=== PATIENT | female | born 1950 | race Caucasian/White ===

== ENCOUNTER → 2017-12-28 14:40 | Outpatient (CLI) | payer MEDICARE, SELFPAY ==
[2017-12-28 15:28] LABS: Hematocrit 38.4 % (36-46)
[2017-12-28 15:49] LABS: BUN Creatinine Ratio 7.8 (6-22); Blood Urea Nitrogen 18 mg/dL (7-17); Calcium 10.7 mg/dL (8.4-10.2); Carbon Dioxide 30 mmol/L (22-32); Chloride 102 mmol/L (98-107); Estimated Glomerular Filt Rate 21.3 mL/min (>60); Glucose 97 mg/dL (80-110); HEMOLYSIS 23 (0-50); HEMOLYSIS < 15 (0-50); Iron 118 ug/dL (37-170); Potassium 4.2 mmol/L (3.4-5.1); Sodium 144 mmol/L (137-145)
[2017-12-28 16:00] LABS: Percent Iron Saturation 34 % (15-50); Total Iron Binding Capacity 344 ug/dL (265-497); Transferrin 283 mg/dL (206-381)
[2017-12-28 16:04] LABS: Protein (Total) Urine Random 12 mg/dL (0-12); Protein Creatinine Ratio Urine 0.11 GRAM/24H
[2017-12-28 16:24] LABS: Ferritin 42.1 ng/mL (11.1-264)
== END ==
PROVIDERS: PCP Family Medicine; Visit Provider Student in an Organized Health Care Education/Training Program
DX: N05.9 Unspecified nephritic syndrome with unspecified morphologic changes (principal); D50.0 Iron deficiency anemia secondary to blood loss (chronic); D64.9 Anemia, unspecified; R80.9 Proteinuria, unspecified
CPT/HCPCS: 36415; 80048; 82570; 82728; 83540; 83550; 84156; 85014; 85018

== ENCOUNTER → 2018-01-07 09:05 | Outpatient (CLI) | payer MEDICARE, SELFPAY ==
[2018-01-07 10:01] LABS: Add Manual Diff / Slide Review NO; Basophils Percent Auto 0.7 % (0-2); Eosinophils Percent Auto 4.4 % (2-4); Hematocrit 34.1 % (36-46); Hemoglobin 11.6 g/dL (12.0-16.0); Lymphocytes Percent Auto 16.7 % (25-40); Mean Corpuscular HGB Conc 34.2 % (30-36); Mean Corpuscular Hemoglobin 31.3 PG (26-34); Mean Corpuscular Volume 91.6 fL (80-100); Monocytes Percent Auto 10.7 % (3-14); Neutrophils Absolute Auto 4100 /uL (3000-5900); Neutrophils Percent Auto 67.5 % (50-75); Platelet Count 221 X10^3/uL (150-400); Red Blood Cell Count 3.72 X10^6/uL (4.0-5.2); Red Cell Distribution Width 14.3 % (11.6-14.8); White Blood Cell Count 6.1 X10^3/uL (4.5-11.0)
[2018-01-07 10:11] LABS: Appearance Urine UA CLEAR; Bilirubin Urine UA NEGATIVE (NEGATIVE); Color Urine UA YELLOW; Glucose Urine UA NEGATIVE (Normal); Ketones Urine UA NEGATIVE (NEGATIVE); Leukocyte Esterase Urine UA NEGATIVE (NEGATIVE); Nitrite Urine UA Negative (Negative); Occult Blood Urine UA NEGATIVE (Negative); Protein Urine UA NEGATIVE (Negative); Specific Gravity Urine UA 1.015 (1.000-1.035); Urobilinogen Urine UA 0.2 E.U./dL (0.2)
[2018-01-07 10:57] LABS: Alanine Aminotransferase 22 IU/L (9-52); Albumin 4.1 g/dL (3.5-5.0); Albumin Globulin Ratio 1.6 (1.0-2.8); Alkaline Phosphatase 63 U/L (38-126); Aspartate Aminotransferase 25 IU/L (14-36); BUN Creatinine Ratio 15.3 (6-22); Bilirubin Total 0.5 mg/dL (0.2-1.3); Blood Urea Nitrogen 23 mg/dL (7-17); Calcium 9.4 mg/dL (8.4-10.2); Carbon Dioxide 31 mmol/L (22-32); Chloride 105 mmol/L (98-107); Cholesterol 138 mg/dL (140-199); Estimated Glomerular Filt Rate 34.7 mL/min (>60); Globulin 2.6 g/dL (1.7-4.1); Glucose 90 mg/dL (80-110); HDL Cholesterol 59 mg/dL (40-60); HEMOLYSIS < 15 (0-50); LDL Cholesterol Calculated 69 mg/dL (<100); Potassium 4.5 mmol/L (3.4-5.1); Sodium 146 mmol/L (137-145); Total Protein 6.7 g/dL (6.3-8.2); Triglycerides 50 mg/dL (35-150)
[2018-01-07 11:21] LABS: Thyroid Stimulating Hormone 3.67 uIU/mL (0.47-4.68)
== END ==
PROVIDERS: PCP Family Medicine; Visit Provider Student in an Organized Health Care Education/Training Program
DX: E78.5 Hyperlipidemia, unspecified (principal); I10 Essential (primary) hypertension; N18.9 Chronic kidney disease, unspecified
CPT/HCPCS: 36415; 80053; 80061; 81003; 84443; 85025

== ENCOUNTER → 2018-01-12 11:18 | Outpatient (CLI) | payer MEDICARE, SELFPAY ==
[2018-01-13 15:45] LABS: Valproic Acid (Depakene) Total 45.2 mg/L (50.0-100.0)
== END ==
PROVIDERS: PCP Family Medicine; Visit Provider Specialist
DX: G43.119 Migraine with aura, intractable, without status migrainosus (principal)
CPT/HCPCS: 36415; 80164

== ENCOUNTER → 2018-01-29 11:08 | Outpatient (CLI) | payer MEDICARE, SELFPAY ==
[2018-01-29 12:30] LABS: B Type Natriuretic Peptide 46.8 (<100)
[2018-01-29 14:49] LABS: BUN Creatinine Ratio 19.3 (6-22); Blood Urea Nitrogen 29 mg/dL (7-17); Calcium 9.8 mg/dL (8.4-10.2); Carbon Dioxide 29 mmol/L (22-32); Chloride 102 mmol/L (98-107); Estimated Glomerular Filt Rate 34.7 mL/min (>60); Glucose 81 mg/dL (80-110); HEMOLYSIS < 15 (0-50); Sodium 143 mmol/L (137-145)
[2018-01-29 15:02] LABS: Potassium 5.4 mmol/L (3.4-5.1)
== END ==
PROVIDERS: PCP Family Medicine; Visit Provider Student in an Organized Health Care Education/Training Program
DX: N05.9 Unspecified nephritic syndrome with unspecified morphologic changes (principal); I50.32 Chronic diastolic (congestive) heart failure
CPT/HCPCS: 36415; 80048; 83880

== ENCOUNTER → 2018-06-21 09:24 | Outpatient (CLI) | payer MEDICARE, SELFPAY ==
[2018-06-21 10:04] LABS: HEMOLYSIS < 15 (0-50); Iron 64 ug/dL (37-170)
[2018-06-21 10:14] LABS: Percent Iron Saturation 17 % (15-50); Total Iron Binding Capacity 370 ug/dL (265-497); Transferrin 288 mg/dL (206-381)
[2018-06-21 10:48] LABS: BUN Creatinine Ratio 16.4 (6-22); Blood Urea Nitrogen 23 mg/dL (7-17); Carbon Dioxide 22 mmol/L (22-32); Chloride 106 mmol/L (98-107); Estimated Glomerular Filt Rate 37.6 mL/min (>60); Glucose 91 mg/dL (80-110); HEMOLYSIS < 15 (0-50); Potassium 4.4 mmol/L (3.4-5.1); Sodium 139 mmol/L (137-145)
[2018-06-21 11:14] LABS: Ferritin 18.4 ng/mL (11.1-264)
[2018-06-21 11:40] LABS: Creatinine Urine Random 126.3 mg/dL; Protein (Total) Urine Random 7 mg/dL (0-12); Protein Creatinine Ratio Urine 0.05 GRAM/24H
[2018-06-21 13:57] LABS: Alanine Aminotransferase 26 IU/L (9-52); Albumin 4.4 g/dL (3.5-5.0); Albumin Globulin Ratio 1.6 (1.0-2.8); Alkaline Phosphatase 106 U/L (38-126); Aspartate Aminotransferase 38 IU/L (14-36); BUN Creatinine Ratio 16.4 (6-22); Bilirubin Total 0.4 mg/dL (0.2-1.3); Blood Urea Nitrogen 23 mg/dL (7-17); Calcium 9.1 mg/dL (8.4-10.2); Carbon Dioxide 21 mmol/L (22-32); Chloride 107 mmol/L (98-107); Cholesterol 165 mg/dL (140-199); Estimated Glomerular Filt Rate 37.6 mL/min (>60); Globulin 2.8 g/dL (1.7-4.1); Glucose 89 mg/dL (80-110); HDL Cholesterol 54 mg/dL (40-60); HEMOLYSIS < 15 (0-50); LDL Cholesterol Calculated 87 mg/dL (<100); Potassium 4.4 mmol/L (3.4-5.1); Sodium 139 mmol/L (137-145); Total Protein 7.2 g/dL (6.3-8.2); Triglycerides 122 mg/dL (35-150)
[2018-06-21 14:28] LABS: Thyroid Stimulating Hormone 4.27 uIU/mL (0.47-4.68)
[2018-06-21 16:26] LABS: Add Manual Diff / Slide Review NO; Basophils Absolute Auto 100 /uL (0-100); Eosinophils Absolute Auto 300 /uL (0-450); Eosinophils Percent Auto 3.3 % (2-4); Hematocrit 42.3 % (36-46); Hemoglobin 13.7 g/dL (12.0-16.0); Lymphocytes Absolute Auto 1000 /uL (1100-4500); Lymphocytes Percent Auto 13.6 % (25-40); Mean Corpuscular HGB Conc 32.4 % (30-36); Mean Corpuscular Hemoglobin 30.2 PG (26-34); Monocytes Absolute Auto 900 /uL (0-900); Monocytes Percent Auto 12.2 % (3-14); Neutrophils Absolute Auto 5300 /uL (1500-7000); Neutrophils Percent Auto 69.9 % (50-75); Platelet Count 270 X10^3/uL (150-400); Red Blood Cell Count 4.55 X10^6/uL (4.0-5.2); White Blood Cell Count 7.6 X10^3/uL (4.5-11.0)
[2018-06-22 13:53] LABS: Parathyroid Hormone Int 215 pg/mL (14-64)
== END ==
PROVIDERS: PCP Family Medicine; Visit Provider Family Medicine
DX: I10 Essential (primary) hypertension (principal); N18.9 Chronic kidney disease, unspecified; Z51.81 Encounter for therapeutic drug level monitoring
CPT/HCPCS: 36415; 80048; 80053; 80061; 82570; 82728; 83540; 83550; 83970; 84156; 84443; 85025

== ENCOUNTER → 2018-08-11 14:03 | Outpatient (CLI) | payer MEDICARE, SELFPAY ==
--- NOTE | 2018-08-11 | DI.RAD.S_ITS ---
PROCEDURE: XR KUB INDICATIONS: Personal history of urinary calculi TECHNIQUE: One view of the abdomen acquired. COMPARISON: [facility], US, RENAL COMPLETE, 08/23/2014, 9:04. [facility], , L-SPINE 2-3 VIEWS, 12/10/2009, 10:49. FINDINGS: Surgical changes and devices: None. Bowel: Bowel gas pattern is nonobstructive. Moderate stool Soft tissues: Probable 1-3 mm multiple left renal calculi. No definite right-sided renal calculi although evaluation is suboptimal due to overlying stool. Presumed right-sided pelvic phleboliths. Bones: No suspicious bony lesions. Diffuse lumbar spondylosis and mild bilateral hip joint degeneration. IMPRESSION: Sub 5 mm left nephrolithiasis. If clinically necessary, this could be definitively assessed with CT KUB. Dictated by: Slim Roberson M.D. on 08/11/2018 at 14:49 Approved by: Slim Roberson M.D. on 08/11/2018 at 14:53
== END ==
PROVIDERS: PCP Family Medicine; Visit Provider Specialist
DX: N20.0 Calculus of kidney (principal); G40.109 Localization-related (focal) (partial) symptomatic epilepsy and epileptic syndromes with simple partial seizures, not intractable, without status epilepticus; Z87.442 Personal history of urinary calculi
CPT/HCPCS: 74018

== ENCOUNTER → 2018-10-21 12:14 | Outpatient (CLI) | payer MEDICARE, SELFPAY ==
[2018-10-21 12:51] LABS: Hematocrit 44.2 % (36-46); Hemoglobin 14.8 g/dL (12.0-16.0)
[2018-10-21 13:31] LABS: HEMOLYSIS < 15 (0-50); Iron 92 ug/dL (37-170)
[2018-10-21 13:33] LABS: BUN Creatinine Ratio 13.8 (6-22); Blood Urea Nitrogen 22 mg/dL (7-17); Calcium 9.8 mg/dL (8.4-10.2); Carbon Dioxide 22 mmol/L (22-32); Chloride 108 mmol/L (98-107); Estimated Glomerular Filt Rate 32.2 mL/min (>60); Glucose 97 mg/dL (80-110); HEMOLYSIS 17 (0-50); Sodium 141 mmol/L (137-145)
[2018-10-21 13:39] LABS: Potassium 5.4 mmol/L (3.4-5.1)
[2018-10-21 13:42] LABS: Percent Iron Saturation 27 % (15-50); Total Iron Binding Capacity 343 ug/dL (265-497); Transferrin 281 mg/dL (206-381)
[2018-10-21 14:04] LABS: Ferritin 32.7 ng/mL (11.1-264)
[2018-10-21 14:38] LABS: Creatinine Urine Random 316.8 mg/dL; Protein (Total) Urine Random 8 mg/dL (0-12); Protein Creatinine Ratio Urine 0.02 GRAM/24H
[2018-10-23 18:12] LABS: Parathyroid Hormone Int 112 pg/mL (14-64)
== END ==
PROVIDERS: PCP Family Medicine; Visit Provider Student in an Organized Health Care Education/Training Program
DX: N05.9 Unspecified nephritic syndrome with unspecified morphologic changes (principal); D50.0 Iron deficiency anemia secondary to blood loss (chronic); D64.9 Anemia, unspecified; N25.81 Secondary hyperparathyroidism of renal origin; R80.9 Proteinuria, unspecified
CPT/HCPCS: 36415; 80048; 82570; 82728; 83540; 83550; 83970; 84156; 85014; 85018

== ENCOUNTER → 2018-10-26 09:49 | Outpatient (CLI) | payer MEDICARE, SELFPAY ==
[2018-10-26 10:45] LABS: HEMOLYSIS < 15 (0-50); Potassium 4.3 mmol/L (3.4-5.1)
== END ==
PROVIDERS: PCP Family Medicine; Visit Provider Student in an Organized Health Care Education/Training Program
DX: E87.5 Hyperkalemia (principal)
CPT/HCPCS: 36415; 84132

== ENCOUNTER → 2019-01-11 15:18 | Outpatient (CLI) | payer MEDICARE, SELFPAY ==
[2019-01-11 16:05] LABS: Hematocrit 41.6 % (36-46); Hemoglobin 13.8 g/dL (12.0-16.0)
[2019-01-11 16:49] LABS: BUN Creatinine Ratio 17.5 (6-22); Blood Urea Nitrogen 28 mg/dL (7-17); Calcium 9.5 mg/dL (8.4-10.2); Carbon Dioxide 23 mmol/L (22-32); Chloride 110 mmol/L (98-107); Creatinine Urine Random 105.5 mg/dL; Estimated Glomerular Filt Rate 32.2 mL/min (>60); Glucose 89 mg/dL (80-110); HEMOLYSIS < 15 (0-50); Potassium 4.6 mmol/L (3.4-5.1); Protein (Total) Urine Random 9 mg/dL (0-12); Protein Creatinine Ratio Urine 0.08 GRAM/24H; Sodium 142 mmol/L (137-145)
[2019-01-14 08:13] LABS: Parathyroid Hormone Int 119 pg/mL (14-64)
== END ==
PROVIDERS: PCP Family Medicine; Visit Provider Student in an Organized Health Care Education/Training Program
DX: N05.9 Unspecified nephritic syndrome with unspecified morphologic changes (principal); D64.9 Anemia, unspecified; N25.81 Secondary hyperparathyroidism of renal origin; R80.9 Proteinuria, unspecified
CPT/HCPCS: 36415; 80048; 82570; 83970; 84156; 85014; 85018

== ENCOUNTER → 2019-04-08 11:02 | Outpatient (CLI) | payer MEDICARE, SELFPAY ==
[2019-04-08 11:44] LABS: Add Manual Diff / Slide Review NO; Basophils Absolute Auto 100 /uL (0-100); Basophils Percent Auto 1.1 % (0-2); Eosinophils Absolute Auto 300 /uL (0-450); Eosinophils Percent Auto 5.3 % (2-4); Hematocrit 41.9 % (36-46); Hemoglobin 14.2 g/dL (12.0-16.0); Lymphocytes Absolute Auto 1400 /uL (1100-4500); Lymphocytes Percent Auto 24.2 % (25-40); Mean Corpuscular HGB Conc 33.8 % (30-36); Mean Corpuscular Hemoglobin 31.4 PG (26-34); Mean Corpuscular Volume 92.8 fL (80-100); Monocytes Absolute Auto 600 /uL (0-900); Monocytes Percent Auto 10.9 % (3-14); Neutrophils Absolute Auto 3400 /uL (1500-7000); Neutrophils Percent Auto 58.5 % (50-75); Platelet Count 226 X10^3/uL (150-400); Red Blood Cell Count 4.52 X10^6/uL (4.0-5.2); Red Cell Distribution Width 13.4 % (11.6-14.8); White Blood Cell Count 5.9 X10^3/uL (4.5-11.0)
[2019-04-08 12:00] LABS: Bilirubin Urine UA NEGATIVE (NEGATIVE); Color Urine UA YELLOW; Glucose Urine UA NEGATIVE (Negative); Ketones Urine UA NEGATIVE (NEGATIVE); Leukocyte Esterase Urine UA 1+ (NEGATIVE); Nitrite Urine UA NEGATIVE (Negative); Occult Blood Urine UA NEGATIVE (Negative); Protein Urine UA TRACE (Negative); Urobilinogen Urine UA 0.2 E.U./dL (0.2); pH Urine UA 5.5 (4.5-8.0)
[2019-04-08 12:01] LABS: Bacteria Urine None Seen; RBC Urine None Seen (0-5/HPF)
[2019-04-08 12:07] LABS: Alanine Aminotransferase 12 IU/L (<35); Albumin 4.3 g/dL (3.5-5.0); Albumin Globulin Ratio 1.7 (1.0-2.8); Alkaline Phosphatase 96 U/L (38-126); Aspartate Aminotransferase 19 IU/L (14-36); Bilirubin Total 0.4 mg/dL (0.2-1.3); Blood Urea Nitrogen 27 mg/dL (7-17); Calcium 9.6 mg/dL (8.4-10.2); Carbon Dioxide 21 mmol/L (22-32); Chloride 108 mmol/L (98-107); Cholesterol 168 mg/dL (140-199); Estimated Glomerular Filt Rate 34.6 mL/min (>60); Globulin 2.5 g/dL (1.7-4.1); Glucose 93 mg/dL (80-110); HDL Cholesterol 47 mg/dL (40-60); HEMOLYSIS < 15 (0-50); LDL Cholesterol Calculated 105 mg/dL (<100); Potassium 3.9 mmol/L (3.4-5.1); Sodium 140 mmol/L (137-145); Total Protein 6.8 g/dL (6.3-8.2); Triglycerides 80 mg/dL (35-150)
[2019-04-08 12:09] LABS: WBC Urine 5-10/HPF (0-5/HPF)
[2019-04-08 12:10] LABS: Appearance Urine UA CLOUDY; Culture Indicated Urine Cult Not Indicated; Mucus Urine 2+ (Negative); Squamous Epithelial Cell Urine 10-30 /HPF (0-5/HPF)
[2019-04-08 12:37] LABS: Thyroid Stimulating Hormone 4.04 uIU/mL (0.47-4.68)
== END ==
PROVIDERS: PCP Family Medicine; Visit Provider Family Medicine
DX: I10 Essential (primary) hypertension (principal); E78.5 Hyperlipidemia, unspecified; N18.9 Chronic kidney disease, unspecified
CPT/HCPCS: 36415; 80053; 80061; 81003; 81015; 84443; 85025

== ENCOUNTER → 2019-05-13 14:24 | Outpatient (CLI) | payer MEDICARE, SELFPAY ==
[2019-05-13 15:21] LABS: Hematocrit 41.8 % (36-46); Hemoglobin 13.8 g/dL (12.0-16.0)
[2019-05-13 16:10] LABS: BUN Creatinine Ratio 17.9 (6-22); Blood Urea Nitrogen 25 mg/dL (7-17); Calcium 9.5 mg/dL (8.4-10.2); Carbon Dioxide 23 mmol/L (22-32); Chloride 105 mmol/L (98-107); Estimated Glomerular Filt Rate 37.5 mL/min (>60); Glucose 79 mg/dL (80-110); HEMOLYSIS < 15 (0-50); Potassium 4.5 mmol/L (3.4-5.1); Sodium 139 mmol/L (137-145)
[2019-05-13 17:17] LABS: Protein (Total) Urine Random 10 mg/dL (0-12); Protein Creatinine Ratio Urine 0.21 GRAM/24H
[2019-05-17 13:48] LABS: Parathyroid Hormone Int 55 pg/mL (14-64)
== END ==
PROVIDERS: PCP Family Medicine; Visit Provider Student in an Organized Health Care Education/Training Program
DX: D64.9 Anemia, unspecified (principal); N25.81 Secondary hyperparathyroidism of renal origin; R80.9 Proteinuria, unspecified
CPT/HCPCS: 36415; 80048; 82570; 83970; 84156; 85014; 85018

== ENCOUNTER → 2019-11-08 13:27 | Outpatient (CLI) | payer MEDICARE, SELFPAY ==
[2019-11-08 13:59] LABS: Hematocrit 42.1 % (36-46)
[2019-11-08 15:14] LABS: BUN Creatinine Ratio 16.1 (6-22); Blood Urea Nitrogen 24 mg/dL (7-17); Calcium 9.5 mg/dL (8.4-10.2); Carbon Dioxide 20 mmol/L (22-32); Chloride 111 mmol/L (98-107); Creatinine Urine Random 122.4 mg/dL; Estimated Glomerular Filt Rate 34.9 mL/min (>60); Glucose 96 mg/dL (80-110); HEMOLYSIS < 15 (0-50); Potassium 4.6 mmol/L (3.4-5.1); Protein (Total) Urine Random 8 mg/dL (0-12); Protein Creatinine Ratio Urine 0.06 GRAM/24H; Sodium 141 mmol/L (137-145)
[2019-11-09 09:08] LABS: Parathyroid Hormone Int 61 pg/mL (15-65)
== END ==
PROVIDERS: PCP Family Medicine; Referring Provider Student in an Organized Health Care Education/Training Program; Visit Provider Student in an Organized Health Care Education/Training Program
DX: R80.9 Proteinuria, unspecified (principal); N05.9 Unspecified nephritic syndrome with unspecified morphologic changes; D64.9 Anemia, unspecified
CPT/HCPCS: 36415; 80048; 82570; 83970; 84156; 85014; 85018

== ENCOUNTER → 2020-02-10 10:53 | Outpatient (CLI) | payer MEDICARE, SELFPAY ==
[2020-02-10 12:12] LABS: Appearance Urine UA CLEAR; Bilirubin Urine UA NEGATIVE (NEGATIVE); Color Urine UA YELLOW; Glucose Urine UA NEGATIVE (Negative); Ketones Urine UA NEGATIVE (NEGATIVE); Leukocyte Esterase Urine UA TRACE (NEGATIVE); Nitrite Urine UA NEGATIVE (Negative); Occult Blood Urine UA NEGATIVE (Negative); Protein Urine UA NEGATIVE (Negative); Urobilinogen Urine UA 0.2 E.U./dL (0.2)
[2020-02-10 12:14] LABS: Add Manual Diff / Slide Review NO; Basophils Absolute Auto 100 /uL (0-100); Eosinophils Absolute Auto 300 /uL (0-450); Eosinophils Percent Auto 5.4 % (2-4); Hematocrit 40.5 % (36-46); Hemoglobin 13.3 g/dL (12.0-16.0); Lymphocytes Absolute Auto 1300 /uL (1100-4500); Lymphocytes Percent Auto 21.7 % (25-40); Mean Corpuscular HGB Conc 32.9 % (30-36); Mean Corpuscular Hemoglobin 30.9 PG (26-34); Mean Corpuscular Volume 93.8 fL (80-100); Monocytes Absolute Auto 600 /uL (0-900); Monocytes Percent Auto 9.6 % (3-14); Neutrophils Absolute Auto 3600 /uL (1500-7000); Neutrophils Percent Auto 62.3 % (50-75); Platelet Count 193 X10^3/uL (150-400); Red Blood Cell Count 4.31 X10^6/uL (4.0-5.2); Red Cell Distribution Width 13.8 % (11.6-14.8); White Blood Cell Count 5.8 X10^3/uL (4.5-11.0)
[2020-02-10 12:24] LABS: pH Urine UA 6.5 (4.5-8.0)
[2020-02-10 12:25] LABS: RBC Urine None Seen (0-5/HPF)
[2020-02-10 12:26] LABS: Alanine Aminotransferase 13 IU/L (<35); Albumin 4.3 g/dL (3.5-5.0); Albumin Globulin Ratio 1.6 (1.0-2.8); Alkaline Phosphatase 79 U/L (38-126); Aspartate Aminotransferase 23 IU/L (14-36); BUN Creatinine Ratio 15.5 (6-22); Bilirubin Total 0.6 mg/dL (0.2-1.3); Blood Urea Nitrogen 23 mg/dL (7-17); Calcium 9.2 mg/dL (8.4-10.2); Carbon Dioxide 23 mmol/L (22-32); Chloride 110 mmol/L (98-107); Cholesterol 139 mg/dL (140-199); Estimated Glomerular Filt Rate 35.1 mL/min (>60); Globulin 2.7 g/dL (1.7-4.1); Glucose 89 mg/dL (80-110); HDL Cholesterol 50 mg/dL (40-60); HEMOLYSIS < 15 (0-50); LDL Cholesterol Calculated 72 mg/dL (<100); Potassium 4.1 mmol/L (3.4-5.1); Sodium 140 mmol/L (137-145); Triglycerides 84 mg/dL (35-150)
[2020-02-10 12:30] LABS: Amorphous Sediment Urine 1+; Bacteria Urine Moderate (10-30); Culture Indicated Urine Specimen Cultured; Mucus Urine 1+ (Negative); Squamous Epithelial Cell Urine 1-5 /HPF (0-5/HPF); WBC Urine 10-30/HPF (0-5/HPF)
[2020-02-10 13:44] LABS: Thyroid Stimulating Hormone 2.08 uIU/mL (0.47-4.68)
== END ==
PROVIDERS: PCP Family Medicine; Referring Provider Family Medicine; Visit Provider Family Medicine
DX: I12.9 Hypertensive chronic kidney disease with stage 1 through stage 4 chronic kidney disease, or unspecified chronic kidney disease (principal); N18.9 Chronic kidney disease, unspecified; G43.909 Migraine, unspecified, not intractable, without status migrainosus; E78.5 Hyperlipidemia, unspecified; R11.2 Nausea with vomiting, unspecified; F32.9 Major depressive disorder, single episode, unspecified
CPT/HCPCS: 36415; 80053; 80061; 81003; 81015; 84443; 85025; 87077; 87086; 87186

== ENCOUNTER → 2020-02-10 11:06 | Outpatient (CLI) | payer MEDICARE, SELFPAY ==
--- NOTE | 2020-02-10 | DI.RAD.S_ITS ---
PROCEDURE: XR ABDOMEN 1V INDICATIONS: Localization-related (focal) (partial) symptomatic epileps TECHNIQUE: One view of the abdomen acquired. COMPARISON: [facility], CR, XR KUB, 08/11/2018, 14:10. FINDINGS: Surgical changes and devices: None. Bowel: Bowel gas pattern is normal. Soft tissues: No suspicious abdominal calcifications. Visualized solid organ contours appear normal in size. Bones: No suspicious bony lesions. IMPRESSION: No definite radiopaque renal, ureteral or bladder calculi. Dictated by: Porfirio CASAREZ Interpreted: Dennis Andino MD on 02/10/2020 at 11:57 Approved by: Dennis Andino M.D. on 02/10/2020 at 13:08
== END ==
PROVIDERS: PCP Family Medicine; Referring Provider Specialist; Visit Provider Specialist
DX: G40.109 Localization-related (focal) (partial) symptomatic epilepsy and epileptic syndromes with simple partial seizures, not intractable, without status epilepticus (principal); I12.9 Hypertensive chronic kidney disease with stage 1 through stage 4 chronic kidney disease, or unspecified chronic kidney disease; N18.9 Chronic kidney disease, unspecified; G43.909 Migraine, unspecified, not intractable, without status migrainosus; E78.5 Hyperlipidemia, unspecified; R11.2 Nausea with vomiting, unspecified; Z87.442 Personal history of urinary calculi
CPT/HCPCS: 36415; 74018; 80053; 80061; 81003; 81015; 84443; 85025; 87077; 87086; 87186

== ENCOUNTER → 2020-03-14 12:54 | Outpatient (CLI) | payer MEDICARE, SELFPAY ==
[2020-03-14 13:24] LABS: Hematocrit 41.3 % (36-46); Hemoglobin 13.4 g/dL (12.0-16.0)
[2020-03-14 13:33] LABS: BUN Creatinine Ratio 23.7 (6-22); Blood Urea Nitrogen 32 mg/dL (7-17); Calcium 9.4 mg/dL (8.4-10.2); Carbon Dioxide 27 mmol/L (22-32); Chloride 108 mmol/L (98-107); Glucose 98 mg/dL (80-110); HEMOLYSIS < 15 (0-50); Potassium 4.3 mmol/L (3.4-5.1); Sodium 139 mmol/L (137-145)
[2020-03-14 15:50] LABS: Creatinine Urine Random 80.5 mg/dL; Protein (Total) Urine Random 7 mg/dL (0-12); Protein Creatinine Ratio Urine 0.08 GRAM/24H
[2020-03-15 07:09] LABS: Parathyroid Hormone Int 52 pg/mL (15-65)
== END ==
PROVIDERS: PCP Family Medicine; Referring Provider Student in an Organized Health Care Education/Training Program; Visit Provider Student in an Organized Health Care Education/Training Program
DX: R80.9 Proteinuria, unspecified (principal); N05.9 Unspecified nephritic syndrome with unspecified morphologic changes; D84.9 Immunodeficiency, unspecified; N25.81 Secondary hyperparathyroidism of renal origin
CPT/HCPCS: 36415; 80048; 82570; 83970; 84156; 85014; 85018

== ENCOUNTER → 2020-06-28 14:32 | Outpatient (CLI) | payer MEDICARE, SELFPAY ==
[2020-06-28] MEDS: COVID-19 VACC #1, MRNA(MOD) 100 MCG/0.5 ML VIAL IM (14:43)
== END ==
PROVIDERS: PCP Family Medicine; Visit Provider Internal Medicine
DX: Z23 Encounter for immunization (principal)
CPT/HCPCS: 0011A; 91301

== ENCOUNTER → 2020-07-26 14:29 | Outpatient (CLI) | payer MEDICARE, SELFPAY ==
[2020-07-26] MEDS: COVID-19 VACC #2, MRNA(MOD) 100 MCG/0.5 ML VIAL IM (14:35)
== END ==
PROVIDERS: PCP Family Medicine; Visit Provider Internal Medicine
DX: Z23 Encounter for immunization (principal)
CPT/HCPCS: 0012A; 91301

== ENCOUNTER → 2020-07-31 14:34 | Outpatient (CLI) | payer MEDICARE, SELFPAY ==
[2020-07-31 15:21] LABS: Hematocrit 40.9 % (36-46); Hemoglobin 13.5 g/dL (12.0-16.0)
[2020-07-31 15:34] LABS: BUN Creatinine Ratio 20.4 (6-22); Blood Urea Nitrogen 28 mg/dL (7-17); Calcium 9.4 mg/dL (8.4-10.2); Carbon Dioxide 21 mmol/L (22-32); Chloride 111 mmol/L (98-107); Estimated Glomerular Filt Rate 38.3 mL/min (>60); Glucose 98 mg/dL (80-110); HEMOLYSIS < 15 (0-50); Potassium 4.4 mmol/L (3.4-5.1); Sodium 141 mmol/L (137-145)
[2020-07-31 15:36] LABS: Creatinine Urine Random 154.7 mg/dL; Protein (Total) Urine Random 7 mg/dL (0-12); Protein Creatinine Ratio Urine 0.04 GRAM/24H
[2020-08-01 05:43] LABS: Parathyroid Hormone Int 123 pg/mL (15-65)
== END ==
PROVIDERS: PCP Family Medicine; Referring Provider Student in an Organized Health Care Education/Training Program; Visit Provider Student in an Organized Health Care Education/Training Program
DX: N05.9 Unspecified nephritic syndrome with unspecified morphologic changes (principal); D64.9 Anemia, unspecified; N25.81 Secondary hyperparathyroidism of renal origin; R80.9 Proteinuria, unspecified
CPT/HCPCS: 36415; 80048; 82570; 83970; 84156; 85014; 85018

== ENCOUNTER → 2020-11-06 13:26 | Outpatient (CLI) | payer MEDICARE, SELFPAY ==
[2020-11-06 14:05] LABS: Carbon Dioxide 19 mmol/L (22-32)
== END ==
PROVIDERS: PCP Family Medicine; Referring Provider Specialist; Visit Provider Specialist
DX: G40.109 Localization-related (focal) (partial) symptomatic epilepsy and epileptic syndromes with simple partial seizures, not intractable, without status epilepticus (principal)
CPT/HCPCS: 36415; 82374

== ENCOUNTER → 2021-01-24 12:42 | Outpatient (CLI) | payer MEDICARE, SELFPAY ==
[2021-01-24 13:11] LABS: Hematocrit 45.7 % (36-46)
[2021-01-24 13:42] LABS: Alanine Aminotransferase 12 IU/L (<35); Albumin 4.6 g/dL (3.5-5.0); Albumin Globulin Ratio 1.8 (1.0-2.8); Alkaline Phosphatase 91 U/L (38-126); Aspartate Aminotransferase 22 IU/L (14-36); BUN Creatinine Ratio 16.2 (6-22); Bilirubin Total 0.6 mg/dL (0.2-1.3); Blood Urea Nitrogen 19 mg/dL (7-17); Calcium 9.9 mg/dL (8.4-10.2); Carbon Dioxide 21 mmol/L (22-32); Chloride 108 mmol/L (98-107); Estimated Glomerular Filt Rate 45.9 mL/min (>60); Globulin 2.5 g/dL (1.7-4.1); Glucose 100 mg/dL (80-110); HEMOLYSIS 21 (0-50); Potassium 4.7 mmol/L (3.4-5.1); Sodium 141 mmol/L (137-145); Total Protein 7.1 g/dL (6.3-8.2)
[2021-01-24 14:12] LABS: Thyroid Stimulating Hormone 2.05 uIU/mL (0.47-4.68)
[2021-01-24 15:42] LABS: Creatinine Urine Random 143.7 mg/dL
[2021-01-24 15:43] LABS: Protein (Total) Urine Random < 5 mg/dL (0-12); Protein Creatinine Ratio Urine 0.03 GRAM/24H
[2021-01-29 10:46] LABS: Parathyroid Hormone Int 64 pg/mL (15-65)
== END ==
PROVIDERS: Student in an Organized Health Care Education/Training Program; PCP Family Medicine; Referring Provider Family Medicine; Visit Provider Family Medicine
DX: F32.9 Major depressive disorder, single episode, unspecified (principal); I10 Essential (primary) hypertension; N18.9 Chronic kidney disease, unspecified
CPT/HCPCS: 36415; 80053; 82570; 83970; 84156; 84443; 85014; 85018

== ENCOUNTER 2021-03-14 23:32 | Emergency (ER) | payer MEDICARE, SELFPAY ==
[2021-03-14 23:39] VITALS: BP 135/96; PULSE 66; RESP 18; TEMP 36.6; O2SAT 99; BMI 39.1
--- NOTE | 2021-03-14 23:42 | DI.CT.S_ITS ---
PROCEDURE: CT CERVICAL SPINE WO CON INDICATIONS: fall with disstracting injuries TECHNIQUE: Noncontrast 3 mm thick sections acquired from the skull base to the T4 level. Sagittal and coronal reformats were then constructed. For radiation dose reduction, the following was used: automated exposure control, adjustment of mA and/or kV according to patient size. COMPARISON: None. FINDINGS: Image quality: Degraded by motion artifact. Bones: No fractures or dislocations. Visualized superior ribs are intact. Soft tissues: Prevertebral soft tissues are normal in thickness. No paravertebral hematomas. No apical pneumothoraces. IMPRESSION: No fracture. Dictated by: Dennis Andino M.D. on 03/15/2021 at 0:50 Approved by: Dennis Andino M.D. on 03/15/2021 at 0:51
--- NOTE | 2021-03-14 23:42 | DI.RAD.S_ITS ---
PROCEDURE: XR KNEE LT 3V INDICATIONS: fall with left knee pain TECHNIQUE: 3 views of the knee were acquired. COMPARISON: None. FINDINGS: Bones: No fractures or dislocations. No suspicious bony lesions. Soft tissues: Moderate knee joint effusion. No suspicious soft tissue calcifications. IMPRESSION: 1. Knee joint effusion. 2. No acute fracture. No osseous lesion. If symptoms and/or clinical suspicion for pathology persist, further assessment with repeat, or advanced imaging (e.g., CT, MRI, or bone scan) may be helpful for further assessment. Dictated by: Dennis Andino M.D. on 03/15/2021 at 0:22 Approved by: Dennis Andino M.D. on 03/15/2021 at 0:23
--- NOTE | 2021-03-14 23:42 | DI.RAD.S_ITS ---
PROCEDURE: XR HIP W PEL IF DONE LT 2V INDICATIONS: fall with left hip pain TECHNIQUE: AP pelvis with lateral view(s) of the left hip(s). COMPARISON: None. FINDINGS: Bones: No fractures or dislocations. Pelvic ring appears intact. No suspicious bony lesions. Periarticular osteophyte formation at the bilateral hip joints. Soft tissues: The visualized bowel gas pattern is normal. No suspicious soft tissue calcifications. IMPRESSION: No acute fracture. No osseous lesion. If symptoms and/or clinical suspicion for pathology persist, further assessment with repeat, or advanced imaging (e.g., CT, MRI, or bone scan) may be helpful for further assessment. Dictated by: Dennis Andino M.D. on 03/15/2021 at 0:21 Approved by: Dennis Andino M.D. on 03/15/2021 at 0:22
--- NOTE | 2021-03-14 23:42 | DI.CT.S_ITS ---
PROCEDURE: CT HEAD/BRAIN WO CON INDICATIONS: fall with head injury TECHNIQUE: Noncontrast 4.5 mm thick angled axial sections acquired from the foramen magnum to the vertex, with coronal and sagittal reformats. For radiation dose reduction, the following was used: automated exposure control, adjustment of mA and/or kV according to patient size. COMPARISON: None. FINDINGS: Image quality: Excellent. CSF spaces: Basal cisterns are patent. No extra-axial fluid collections. The ventricles are symmetric in size and shape. Brain: No intracranial bleeds or masses. There is cerebral volume loss for age, with resultant ventricular and sulcal prominence. There are periventricular and deep white matter chronic small vessel ischemic changes. There is intracranial internal carotid artery atherosclerosis. Skull and face: Calvarium and visualized facial bones appear intact, without suspicious lesions. Sinuses: Visualized sinuses and mastoids are clear. IMPRESSION: No acute intracranial abnormality. Dictated by: Dennis Andino M.D. on 03/15/2021 at 0:49 Approved by: Dennis Andino M.D. on 03/15/2021 at 0:49
--- NOTE | 2021-03-14 23:42 | DI.RAD.S_ITS ---
PROCEDURE: XR ANKLE LT MIN 3V INDICATIONS: fall with ankle pain TECHNIQUE: 3 views of the ankle were acquired. COMPARISON: None. FINDINGS: Bones: No fractures or dislocations. Ankle mortise is normally aligned. No suspicious bony lesions. Soft tissues: No tibiotalar joint effusion. Achilles tendon appears normal. IMPRESSION: No acute fracture. No osseous lesion. If symptoms and/or clinical suspicion for pathology persist, further assessment with repeat, or advanced imaging (e.g., CT, MRI, or bone scan) may be helpful for further assessment. Dictated by: Dennis Andino M.D. on 03/15/2021 at 0:23 Approved by: Dennis Andino M.D. on 03/15/2021 at 0:23
--- NOTE | 2021-03-14 23:44 | ED.FALL ---
HPI - Fall General Chief Complaint: Fall Stated Complaint: GLF Time Seen by Provider: 03/14/21 23:36 Source: patient and EMS Mode of arrival: EMS History of Present Illness HPI Narrative: 71-year-old female former smoker with history of hypertension and hyperlipidemia presents with a chief complaint of a ground level fall resulting in injuries to her left knee and ankle. She states that she was in her normal state of health and fell because of a clot see moment. She had misplaced her keys and borrowed some from a neighbor and was racing across the sidewalk when she tripped and fell onto her left, hip, knee and ankle. She had significant pain and ambulating and upon standing states that her left leg gave out on her. She was unaware that she had struck her head until EMS arrived and saw an abrasion on her forehead. She does not take any anticoagulation, denies any loss of consciousness, denies any nausea, vomiting or ongoing neurologic symptoms such as numbness, tingling or weakness. She has pain in her left hip, knee and ankle. Her tetanus will need to be updated. She is activated as a modified trauma given her age and suspected injury. Again, she denies any prodromal symptoms such as chest pain or shortness of breath leading to her fall. Related Data Home Medications Medication Instructions Recorded Confirmed vit C 250 mg-vit E 90 mg-zinc 40 1 tab PO BID 04/12/19 10/31/20 mg-copper 1 tg-byorog-ztsiya capsule (PreserVision AREDS-2) propranolol 40 mg tablet 40 mg PO BID tab 01/06/20 10/31/20 isosorbide mononitrate 30 mg mg PO 10/31/20 10/31/20 tablet,extended release 24 hr topiramate 50 mg tablet See Rx Instructions PO BID PRN tab 10/31/20 10/31/20 Previous Rx's Medication Instructions Recorded adjuvant AS01B (PF)vial 1 of 2 0.5 ml IM ONCE #0.5 ml 03/31/18 (Shingrix Adjuvant Component-PF) pneumoc 13-anusha conj-dip cr(PF) 0.5 0.5 ml IM ONCE #0.5 ml 03/31/18 mL IM syringe divalproex 250 mg tablet,delayed 500 mg PO BID #180 tab 10/13/18 release lamotrigine 150 mg tablet 150 mg PO BID #180 tab 10/13/18 atorvastatin 20 mg tablet (Lipitor) 20 mg PO HS #90 tab 01/03/21 ondansetron 4 mg disintegrating 4 mg PO TID-QID PRN #10 tab 03/15/21 tablet oxycodone 5 mg tablet 5 mg PO Q4-6H PRN #30 tab 03/15/21 Allergies Allergy/AdvReac Type Severity Reaction Status Date / Time meperidine [MEPERIDINE] Allergy Unknown Verified 03/14/21 23:39 Penicillins [PENICILLINS] Allergy Unknown Verified 03/14/21 23:39 Review of Systems Review of Systems Narrative: GENERAL: Denies chills, fatigue, malaise, fever, sweats. HEENT: Denies sinus pain, ear pain, sore throat, difficulty swallowing, dizziness. RESPIRATORY: Denies dyspnea, cough, wheezing, hemoptysis, sputum. CARDIOVASCULAR: Denies chest pain, palpitations, orthopnea, edema, GASTROINTESTINAL: Denies nausea, vomiting, abdominal pain, diarrhea, constipation, melena. : Denies dysuria, frequency, incontinence, hematuria, urinary retention. MUSCULOSKELETAL: See HPI SKIN: Denies rash, skin lesions, or other NEUROLOGIC: Denies weakness, headache, numbness, change in speech, confusion, seizures, incoordination. PSYCHIATRIC: No concerning psychosocial issues. 12 point review of systems is negative except for those stated above Patient History Medical History Anemia CKD (chronic kidney disease) stage 3, GFR 30-59 ml/min Depression Epilepsy History of nephrolithiasis Hypertension Left hand fracture (~2012) Proteinuria Renal osteodystrophy Right hand fracture (~2011) Seizures Surgical History Status post arthroscopy Family History Brother Age: 68 Migraines Father Diabetes mellitus Grandfather TB (tuberculosis) Grandmother Lung cancer Mother Lung cancer Grandfather NM (myocardial infarction) Grandmother NM (myocardial infarction) Sister Seizure disorder Hypertension Depression History of surgery Social History Smoking Status: Former smoker Tobacco: How many years used: 20 alcohol intake: former (socially ) substance use type: does not use Smoking Status: Former smoker alcohol intake frequency: 0-2 drinks per day Substance Use Type: does not use Exam Narrative Exam Narrative: GENERAL: [71 year old patient appears stated age. Well-developed patient, in mild distress. GCS 15 HEAD: Superficial abrasion on right forehead with minimal swelling, no evidence of depressed skull fracture EYES: Pupils equal round and reactive. No hyphema. Extraocular motions intact. No scleral icterus. No injection or drainage. ENT: Nose without bleeding, purulent drainage. Throat without erythema, tonsillar hypertrophy or exudate. Airway patent. NECK: Trachea midline. Non tender, no step-offs or crepitance CARDIOVASCULAR: Regular rate and rhythm without murmurs, gallops, or rubs. RESPIRATORY: Clear to auscultation. Breath sounds equal bilaterally. No wheezes, rales, or rhonchi. GASTROINTESTINAL: Abdomen soft, non-tender, nondistended. EXTREMITIES: Full but painful range of motion of the left hip, left knee and left ankle, no obvious deformity of knee, perhaps a small effusion, no erythema. No obvious ligamentous instability. Left ankle with minimal lateral swelling, no obvious deformity. Perhaps shortening and external rotation at the left hip. BACK: Nontender without deformity or crepitance. No flank tenderness. NEURO: AOx3. SKIN: No rash or erythema of visible areas Initial Vital Signs Initial Vital Signs: Vital Signs Temperature 98 F 03/14/21 23:39 Pulse Rate 66 03/14/21 23:39 Respiratory Rate 18 03/14/21 23:39 Blood Pressure 135/96 H 03/14/21 23:39 Pulse Oximetry 99 03/14/21 23:39 Course Orders Ordered: Discontinued Medications Acetaminophen (Acetaminophen 325 Mg Tablet) 975 mg PO NOW ONE Stop: 03/15/21 00:38 Last Admin: 03/15/21 00:41 Dose: 975 mg Documented by: GAEL Acetaminophen (Acetaminophen 325 Mg Tablet) 325 mg PO Q6HR PRN PRN Reason: Fever/Mild Pain (1-3) Bacitracin (Bacitracin Oint 0.9 Gm Pckt) 1 applic TOP NOW ONE Stop: 03/15/21 00:38 Last Admin: 03/15/21 00:41 Dose: 1 applic Documented by: GAEL Diphtheria/Tetanus/Acell Pertussis (Tet,Diph,Pertuss(Acell),Vac/Pf 0.5 Ml Syringe) 0.5 ml IM .ONCE ONE Stop: 03/14/21 23:43 Last Admin: 03/14/21 23:49 Dose: 0.5 ml Documented by: GAEL Oxycodone HCl (Oxycodone Ir 5 Mg Tablet) 5 mg PO NOW ONE Stop: 03/15/21 02:45 Last Admin: 03/15/21 02:58 Dose: 5 mg Documented by: KAYLEEN Oxycodone/Acetaminophen (Oxycodone/Acetaminophen 5/325 Tablet) 1 tab PO NOW ONE Stop: 03/15/21 02:43 Last Admin: 03/15/21 02:59 Dose: Not Given Documented by: KAYLEEN Consultations Consultation #1: discussed with Dr. Thompson (senior talent acquisition specialist Ortho), no surgical indication. Recommends non-weight bearing, pain control, knee immobilizer. Follow up after further review of CT there is subtle suggestion of possible medial plateau involvement, ortho recontacted and requests radiology over-read Consultation #2: images pushed to [facility] and case discussed with Dr. Jasmin Gasca who has added an addendum noting medial cortex involvement call back to Dr. Thompson suggesting this could very well be surgical at this point and requests [facility] [place] Consultation #3: call to [facility]. Currently in rounds, will review images and call back at 0700. Patient and family aware. Dr Garrido has called back after reviewing case and images. He agrees that patient is nonsurgical in suggest knee immobilizer, pain control, nonweightbearing and crutches with local follow-up. Vital Signs Vital signs: Vital Signs - 8 hr 03/14/21 23:39 03/15/21 00:36 Temperature 98 F Pulse Rate 66 65 Respiratory Rate 18 18 Blood Pressure 135/96 H 168/73 H Pulse Oximetry 99 98 MDM - Fall Imaging Data CT scan - head: Radiologist's Impression: Launch?[address] [address] [address] Scan Report Signed Patient: Clara Paris MR#: [id number] : 1950 Acct:[id number] Age/Sex: 71 / F Date of Service: 03/14/21 Loc: ED Accession Number: [id number] ?? Procedure: CT head/brain wo con Ordering Provider: Oscar Benjamin D.O. PROCEDURE:? CT HEAD/BRAIN WO CON ? INDICATIONS:? fall with head injury ? TECHNIQUE:? Noncontrast 4.5 mm thick angled axial sections acquired from the foramen magnum to the vertex, with coronal and sagittal reformats.? For radiation dose reduction, the following was used:? automated exposure control, adjustment of mA and/or kV according to patient size.? ? COMPARISON:? None. ? FINDINGS:? Image quality:? Excellent.? ? CSF spaces:? Basal cisterns are patent.? No extra-axial fluid collections.? The ventricles are symmetric in size and shape.? ? Brain:? No intracranial bleeds or masses.? There is cerebral volume loss for age, with resultant ventricular and sulcal prominence.? There are periventricular and deep white matter chronic small vessel ischemic changes.? There is intracranial internal carotid artery atherosclerosis.? ? Skull and face:? Calvarium and visualized facial bones appear intact, without suspicious lesions.? ? Sinuses:? Visualized sinuses and mastoids are clear.? ? IMPRESSION:? No acute intracranial abnormality. ? ? Dictated by: Dennis Andino M.D. on 03/15/2021 at 0:49 ? ? Approved by: Dennis Andino M.D. on 03/15/2021 at 0:49 ? CT - cervical spine: Radiologist's Impression: Close Pelvis CT (Signed) Dennis Andino - 03/15/21 Knee X-Ray (Signed) Dennis Andino - 03/14/21 Hip X-Ray (Signed) Dennis Andino - 03/14/[address] (Signed) Dennis Andino - 03/14/[address] (Signed) Dennis Andino - 03/14/21 Ankle X-Ray (Signed) Dennis Andino - 03/14/21 Abdomen X-Ray (Signed) Dennis Andino - 02/10/20 KUB X-Ray (Signed) Slim Roberson - 08/11/18 Launch?[address] [address] [address] Scan Report Signed Patient: Clara Paris MR#: [id number] : 1950 Acct:[id number] Age/Sex: 71 / F Date of Service: 03/14/21 Loc: ED Accession Number: [id number] ?? Procedure: CT cervical spine wo con Ordering Provider: Oscar Benjamin D.O. PROCEDURE:? CT CERVICAL SPINE WO CON ? INDICATIONS:? fall with disstracting injuries ? TECHNIQUE:? Noncontrast 3 mm thick sections acquired from the skull base to the T4 level.? Sagittal and coronal reformats were then constructed.? For radiation dose reduction, the following was used:? automated exposure control, adjustment of mA and/or kV according to patient size.? ? COMPARISON:? None. ? FINDINGS:? Image quality:? Degraded by motion artifact. ? Bones:? No fractures or dislocations.? Visualized superior ribs are intact.? ? Soft tissues:? Prevertebral soft tissues are normal in thickness.? No paravertebral hematomas.? No apical pneumothoraces.? ? ? IMPRESSION:? No fracture. ? Dictated by: Dennis Andino M.D. on 03/15/2021 at 0:50 ? ? Approved by: Dennis Andino M.D. on 03/15/2021 at 0:51 ? CT scan - abdomen/pelvis: Radiologist's Impression: Clara Paris??71??F??1950 ? Allergy/Adv: meperidine, Penicillins Close Pelvis CT (Signed) Dennis Andino - 03/15/21 Knee X-Ray (Signed) Dennis Andino - 03/14/21 Hip X-Ray (Signed) Dennis Andino - 03/14/[address] (Signed) Dennis Andino - 03/14/[address] (Signed) Dennis Andino - 03/14/21 Ankle X-Ray (Signed) Dennis Andino - 03/14/21 Abdomen X-Ray (Signed) Dennis Andino - 02/10/20 KUB X-Ray (Signed) Slim Roberson - 08/11/18 Launch?[address] [address] [address] Scan Report Signed Patient: Clara Paris MR#: [id number] : 1950 Acct:[id number] Age/Sex: 71 / F Date of Service: 03/15/21 Loc: ED Accession Number: [id number] ?? Procedure: CT pelvis wo con Ordering Provider: Oscar Benjamin D.O. PROCEDURE:? CT PEL WO CON ? INDICATIONS:? fall with severe left hip pain ? TECHNIQUE:? Noncontrast 3 mm axial sections acquired through the bony pelvis, with coronal and sagittal reformatting.? ? COMPARISON:? [facility], CR, XR HIP W PEL IF DONE LT 2V, 03/14/2021, 23:42. ? FINDINGS:? Image quality:? Excellent.? ? Bones:? No fracture or osseous lesion.? Periarticular osteophyte formation at the bilateral hip joints. ? Soft tissues:? Grossly unremarkable ? ? IMPRESSION:? No fracture. ? Dictated by: Dennis Andino M.D. on 03/15/2021 at 0:51 ? ? Approved by: Dennis Andino M.D. on 03/15/2021 at 0:52 ? Extremity x-ray #1: Radiologist's Impression: Chart Viewer Diagnostics Subcategory All Activity ??:?? All Time ??:?? All Subcategories Filter Laboratory Imaging Microbiology Pathology Blood Bank Tests Cardiovascular Other Specialty DATE TYPE STATUS REF RANGE/AUTHOR Hx Today 00:[address] Signed Dennis Andino 03/14/21 23:42 Knee X-Ray Signed Dennis Andino 03/14/21 23:42 Hip X-Ray Signed Dennis Andino 03/14/21 23:[address] Signed Mehul Andinor 03/14/21 23:[address] Signed Cachorro Andinoeer 03/14/21 23:42 Ankle X-Ray Signed Dennis Andino 02/10/20 00:00 Abdomen X-Ray Signed Dennis Andino 08/11/18 00:00 KUB X-Ray Signed Slim Roberson Peggy A ED 71, F?1950 MRN#? [id number] REG ER,?Main ED??R04?? 170.18cm 113.398kg BMI: 39.2kg/m? Fall Acc#? [id number] Resus Status Not Ordered No Hx Avail Special Indicators PrimaryCarePt 30Min Appt Only Home Meds Not Confirmed Prescription Monitoring Program MEDICATIONS (INSTRUCTIONS) LAST TAKEN Active ??adjuvant AS01B (PF)vial 1 of 2 ??0.5 mlIMONCE#0.5 ml ??atorvastatin 20 mg tablet ??20 mgPOHS#90 tab ??divalproex 250 mg tablet,delayed release ??500 mgPOBID#180 tab ??isosorbide mononitrate 30 mg tablet,extended release 24 hr ??mgPO ??lamotrigine 150 mg tablet ??150 mgPOBID#180 tab ??pneumoc 13-anusha conj-dip cr(PF) 0.5 mL IM syringe ??0.5 mlIMONCE#0.5 ml ??propranolol 40 mg tablet ??40 mgPOBID?tab ??topiramate 50 mg tablet ??See Rx InstructionsPOBIDPRN?tab ??vit C 250 mg-vit E 90 mg-zinc 40 mg-copper 1 tg-wseryn-fankqy capsule ??1 tabPOBID Allergies meperidine (MEPERIDINE) Penicillins (PENICILLINS) Problems External Data Available ? ONSET Epilepsy Hyperlipidemia CKD (chronic kidney disease) HTN (hypertension) Depression Vital Signs Today 00:36 BP 168/73?H Pulse 65? Resp 18? O2 Sat 98? Delivery Room Air? Diagnostics Reports Paris,Clara A??71??F??1950 ? Allergy/Adv: meperidine, Penicillins Close Pelvis CT (Signed) Dennis Andino - 03/15/21 Knee X-Ray (Signed) Dennis Andino - 03/14/21 Hip X-Ray (Signed) Dennis Andino - 03/14/[address] (Signed) Dennis Andino - 03/14/[address] (Signed) Dennis Andino - 03/14/21 Ankle X-Ray (Signed) Dennis Andino - 03/14/21 Abdomen X-Ray (Signed) Dennis Andino - 02/10/20 KUB X-Ray (Signed) Slim Roberson - 08/11/18 Launch?[address] [address] XRay Report Signed Patient: Clara Prais MR#: [id number] : 1950 Acct:[id number] Age/Sex: 71 / F Date of Service: 03/14/21 Loc: Accession Number: [id number] ?? Procedure: XR knee LT 3V Ordering Provider: Oscar Benjamin D.O. PROCEDURE:? XR KNEE LT 3V ? INDICATIONS:? fall with left knee pain ? TECHNIQUE:? 3 views of the knee were acquired.? ? COMPARISON:? None. ? FINDINGS:? ? Bones:? No fractures or dislocations.? No suspicious bony lesions.? ? Soft tissues:? Moderate knee joint effusion.? No suspicious soft tissue calcifications.? ? ? IMPRESSION:? 1. Knee joint effusion. 2. No acute fracture. No osseous lesion. If symptoms and/or clinical suspicion for pathology persist, further assessment with repeat, or advanced imaging (e.g., CT, MRI, or bone scan) may be helpful for further assessment. ? ? Dictated by: Dennis Andino M.D. on 03/15/2021 at 0:22 ? ? Approved by: Dennis Adnino M.D. on 03/15/2021 at 0:23 ? Extremity x-ray #2: Radiologist's Impression: Clara Paris??71??F??1950 ? Allergy/Adv: meperidine, Penicillins Close Pelvis CT (Signed) Dennis Andino - 03/15/21 Knee X-Ray (Signed) Dennis Andino - 03/14/21 Hip X-Ray (Signed) Mehul Andinor - 03/14/[address] (Signed) Dennis Andino - 03/14/[address] (Signed) Dennis Andino - 03/14/21 Ankle X-Ray (Signed) Dennis Andino - 03/14/21 Abdomen X-Ray (Signed) Dennis Andino - 02/10/20 KUB X-Ray (Signed) Slim Roberson - 08/11/18 Launch?[address] [address] XRay Report Signed Patient: Clara Paris MR#: [id number] : 1950 Acct:[id number] Age/Sex: 71 / F Date of Service: 03/14/21 Loc: ED Accession Number: [id number] ?? Procedure: XR ankle LT min 3V Ordering Provider: Oscar Benjamin D.O. PROCEDURE:? XR ANKLE LT MIN 3V ? INDICATIONS:? fall with ankle pain ? TECHNIQUE:? 3 views of the ankle were acquired.? ? COMPARISON:? None. ? FINDINGS:? ? Bones:? No fractures or dislocations.? Ankle mortise is normally aligned.? No suspicious bony lesions.? ? Soft tissues:? No tibiotalar joint effusion.? Achilles tendon appears normal.? ? ? IMPRESSION:? No acute fracture. No osseous lesion. If symptoms and/or clinical suspicion for pathology persist, further assessment with repeat, or advanced imaging (e.g., CT, MRI, or bone scan) may be helpful for further assessment. ? ? Dictated by: Dennis Andino M.D. on 03/15/2021 at 0:23 ? ? Approved by: Dennis Andino M.D. on 03/15/2021 at 0:23 ? CT LE: Radiologist's Impression: Chart Viewer Diagnostics Subcategory All Activity ??:?? All Time ??:?? All Subcategories Filter Laboratory Imaging Microbiology Pathology Blood Bank Tests Cardiovascular Other Specialty DATE TYPE STATUS REF RANGE/AUTHOR Hx Today 01:[address] Signed Andino,Muneer Today 00:[address] Signed Thu,Muneer 03/14/21 23:42 Knee X-Ray Signed Andino,Muneer 03/14/21 23:42 Hip X-Ray Signed Andino,Muneer 03/14/21 23:[address] Signed Andino,Muneer 03/14/21 23:[address] Signed Andino,Muneer 03/14/21 23:42 Ankle X-Ray Signed Andino,Muneer 02/10/20 00:00 Abdomen X-Ray Signed Andino,Muneer 08/11/18 00:00 KUB X-Ray Signed Slim Roberson Peggy A ED 71, F?1950 MRN#? [id number] REG ER,?Main ED??R04?? 170.18cm 113.398kg BMI: 39.2kg/m? Fall Acc#? [id number] Resus Status Not Ordered No Hx Avail Special Indicators PrimaryCarePt 30Min Appt Only Home Meds Not Confirmed Prescription Monitoring Program Total 45 MME/Day Pending Discharge MEDICATIONS (INSTRUCTIONS) LAST TAKEN Active ??adjuvant AS01B (PF)vial 1 of 2 ??0.5 mlIMONCE#0.5 ml ??atorvastatin 20 mg tablet ??20 mgPOHS#90 tab ??divalproex 250 mg tablet,delayed release ??500 mgPOBID#180 tab ??isosorbide mononitrate 30 mg tablet,extended release 24 hr ??mgPO ??lamotrigine 150 mg tablet ??150 mgPOBID#180 tab ondansetron 4 mgPOTID-QIDPRN#10 tab oxycodone 5 mgPOQ4-6HPRN#30 tab 45 MME/Day ??pneumoc 13-anusha conj-dip cr(PF) 0.5 mL IM syringe ??0.5 mlIMONCE#0.5 ml ??propranolol 40 mg tablet ??40 mgPOBID?tab ??topiramate 50 mg tablet ??See Rx InstructionsPOBIDPRN?tab ??vit C 250 mg-vit E 90 mg-zinc 40 mg-copper 1 jg-imkfqf-wtobrk capsule ??1 tabPOBID Allergies meperidine (MEPERIDINE) Penicillins (PENICILLINS) Problems External Data Available ? ONSET Fracture of tibial plateau Epilepsy Hyperlipidemia CKD (chronic kidney disease) HTN (hypertension) Depression Vital Signs Today 00:36 BP 168/73?H Pulse 65? Resp 18? O2 Sat 98? Delivery Room Air? Diagnostics Reports Paris,Clara A??71??F??1950 ? Allergy/Adv: meperidine, Penicillins Close Lower Extremity CT (Signed) Dennis Andino - 03/15/[address] (Signed) Dennis Andino - 03/15/21 Knee X-Ray (Signed) Dennis Andino - 03/14/21 Hip X-Ray (Signed) Dennis Andino - 03/14/[address] (Signed) Dennis Andino - 03/14/[address] (Signed) Dennis Andino - 03/14/21 Ankle X-Ray (Signed) Dennis Andino - 03/14/21 Abdomen X-Ray (Signed) ThuCachorroitzel - 02/10/20 KUB X-Ray (Signed) DaSlim - 08/11/18 Launch?Image [address] [address] [address] Scan Report Signed Patient: Clara Paris MR#: [id number] : 1950 Acct:[id number] Age/Sex: 71 / F Date of Service: 03/15/21 Loc: ED Accession Number: [id number] ?? Procedure: CT LE LT wo con Ordering Provider: Oscar Benjamin D.O. PROCEDURE:? CT LE LT W CON ? INDICATIONS:? severe pain in knee, cannot weight bear ? TECHNIQUE:? Noncontrast 3 mm axial sections acquired of the knee , with coronal and sagittal reformats. ? ? COMPARISON:? [facility], CR, XR KNEE LT 3V, 03/14/2021, 23:42. ? FINDINGS:? Image quality:? Excellent.? ? Bones:? There is a minimally displaced sagittal plane fracture of the central/lateral tibial plateau, not seen by plain film. ? Soft tissues:? Knee joint effusion containing fat. ? IMPRESSION:? Minimally displaced tibial fracture with associated lipohemarthrosis. ? ? Dictated by: Dennis Andino M.D. on 03/15/2021 at 1:56 ? ? Approved by: Dennis Andino M.D. on 03/15/2021 at 1:57 ? [facility] Narrative Medical decision making narrative: 07 - patient discussed with Ortho attending (Radhika). Non-opeartive. Local orthopedics happy to follow this patient given her reviews blessing. Patient is able to ambulate with a walker, pain is well controlled. Compartments remain soft. She has been given return precautions and questions have been answered to her apparent satisfaction Discharge Plan Departure Patient Disposition: Home Clinical Impression: Fracture of tibial plateau Instructions: DI for Tibial Plateau Fracture Activity Restrictions/Additional Instructions: *You have been diagnosed with [Left Tibial Plateau fracture. Imaging thankfully would suggest there is no need for surgery.] *What to do: *Please continue to take your regular medications as directed. As we discussed Ortho strongly recommends taking 81mg Aspiring twice daily. [x] New medication prescriptions sent to your pharmacy: [[facility] ] [ ] New medication written as a paper prescription [x] Tylenol and occasional Motrin for pain *Please follow up with [Donna] of [facility] in 2-3 days, call for an appointment. Let them know you were seen in the Emergency Department and that we ask that you be seen in follow up. We will electronically transmit a record of today's note if your PCP is in our system Also, as we discussed, we contacted the Orthopedic Trauma Team at [facility] and they will reach out to you to schedule a follow up next week. If you don't hear from them by lunch today please call at [phone] *Return to Emergency Department if you should have any new, worsening or concerning symptoms, such as [worsening pain, significant swelling, cold extremities, numbness, tingling, weakness or other bothersome symptoms NON-WEIGHT BEARING Splint Care: Keep splint clean and dry. Elevated affected body part to decrease swelling. OK to use ice pack on the affected body part. Use for 15-20 minutes each time, for 5-6x per day. If you develop worsening pain, numbness, tingling, discoloration of the affected body part, loosen the splint by loosening the GERMAINE wrap, and either see your doctor for an urgent re-assessment, or return to the Emergency Department. Return to the Emergency Department for any new or worsening symptoms. You have been prescribed a short course of narcotic medications. These are potentially dangerous and addictive medications that should be used carefully. While on these medications you cannot drive or operate heavy machinery. Additionally, you cannot sign legal documents or perform any duties such as this. Many people get constipated on narcotic medications so it would be advisable to discuss stool softeners with the pharmacist when you picker and sorter load and unload your prescription. Please understand that we cannot provide further refills of narcotics or controlled substances through the ED and your pain management will need to be through your Primary Care Provider Prescriptions: New oxycodone 5 mg tablet 5 mg PO Q4-6H PRN (Reason: pain) Qty: 30 0RF ondansetron 4 mg tablet,disintegrating 4 mg PO TID-QID PRN (Reason: nausea and vomiting) Qty: 10 0RF No Action pneumoc 13-anusha conj-dip cr(PF) 0.5 mL syringe 0.5 ml IM ONCE Qty: 0.5 0RF Rx Instructions: as a single dose adjuvant AS01B (PF)vial 1 of 2 [Shingrix Adjuvant Component-PF] suspension 0.5 ml IM ONCE Qty: 0.5 0RF atorvastatin [Lipitor] 20 mg tablet 20 mg PO HS Qty: 90 1RF propranolol 40 mg tablet 40 mg PO BID 0RF divalproex 250 mg tablet,delayed release (DR/EC) 500 mg PO BID Qty: 180 1RF lamotrigine 150 mg tablet 150 mg PO BID Qty: 180 1RF PreserVision AREDS-2 [id number] yh-oynw-xt-mg capsule 1 tab PO BID 0RF isosorbide mononitrate 30 mg tablet extended release 24 hr PO 0RF topiramate 50 mg tablet See Rx Instructions PO BID PRN0RF Rx Instructions: 1/2 to 1 tab PO twice a day PRN; Can take second dose 2 hours after initial dose. MDD= 2 tabs in 24 hours Referrals: Yesy Thompson MD [Physician] - Randy Gomez DO [Primary Care Provider] -
[2021-03-14] MEDS: TET,DIPH,PERTUSS(ACELL),VAC/PF 0.5 ML SYRINGE IM (23:49)
--- NOTE | 2021-03-15 00:11 | DI.CT.S_ITS ---
PROCEDURE: CT PEL WO CON INDICATIONS: fall with severe left hip pain TECHNIQUE: Noncontrast 3 mm axial sections acquired through the bony pelvis, with coronal and sagittal reformatting. COMPARISON: , CR, XR HIP W PEL IF DONE LT 2V, 03/14/2021, 23:42. FINDINGS: Image quality: Excellent. Bones: No fracture or osseous lesion. Periarticular osteophyte formation at the bilateral hip joints. Soft tissues: Grossly unremarkable IMPRESSION: No fracture. Dictated by: Dennis Andino M.D. on 03/15/2021 at 0:51 Approved by: Dennis Andino M.D. on 03/15/2021 at 0:52
[2021-03-15 00:36] VITALS: BP 168/73; PULSE 65; RESP 18; O2SAT 98
[2021-03-15] MEDS: BACITRACIN OINT 0.9 GM PCKT 1 APPLIC TOP (00:41)
[2021-03-15] MEDS: ACETAMINOPHEN 325 MG TABLET 975 MG PO (00:41)
--- NOTE | 2021-03-15 01:40 | DI.CT.S_ITS ---
PROCEDURE: CT LE LT W CON INDICATIONS: severe pain in knee, cannot weight bear TECHNIQUE: Noncontrast 3 mm axial sections acquired of the knee , with coronal and sagittal reformats. COMPARISON: [facility], CR, XR KNEE LT 3V, 03/14/2021, 23:42. FINDINGS: Image quality: Excellent. Bones: There is a minimally displaced sagittal plane fracture of the central/lateral tibial plateau, not seen by plain film. Soft tissues: Knee joint effusion containing fat. IMPRESSION: Minimally displaced tibial fracture with associated lipohemarthrosis. Dictated by: Dennis Andino M.D. on 03/15/2021 at 1:56 Approved by: Dennis Andino M.D. on 03/15/2021 at 1:57
--- NOTE | 2021-03-15 01:45 | PC.NURSE ---
Knee immobilizer place. Pt attempted to ambulate and was unable to put and weight on her L knee using a walker. I informed Dr. Benjamin. Will get a CT of her knee
[2021-03-15] MEDS: OXYCODONE IR 5 MG TABLET PO (02:58)
--- NOTE | 2021-03-15 03:58 | PC.NURSE ---
Pt doing well with ambulating with a walker and being non weight baring on her L side. Dr. Benjamin observed pt walking and okay'd for her to go home
[2021-03-15 07:32] VITALS: PULSE 79; O2SAT 99
[2021-03-15 07:45] VITALS: PULSE 75; O2SAT 96
[2021-03-15 07:46] VITALS: BP 176/77
[2021-03-15 08:04] VITALS: TEMP 36.7
--- NOTE | 2021-03-15 08:17 | PC.NURSE ---
Pt DC'd to home. advised to f/u with ortho trauma team at [facility] and number provided. assisted with walker and helped into vehicle by Jaswant LINO
== END 2021-03-15 08:19 | disposition home or self-care (01) ==
PROVIDERS: Emergency Provider Emergency Medicine; PCP Family Medicine
DX: S82.142A Displaced bicondylar fracture of left tibia, initial encounter for closed fracture (principal); S09.90XA Unspecified injury of head, initial encounter; W18.30XA Fall on same level, unspecified, initial encounter; M25.572 Pain in left ankle and joints of left foot; M25.552 Pain in left hip; Z23 Encounter for immunization
CPT/HCPCS: 70450; 72125; 72192; 73502; 73562; 73610; 73700; 90471; 99284; 90715

== ENCOUNTER → 2021-03-28 14:24 | Outpatient (CLI) | payer MEDICARE, SELFPAY ==
--- NOTE | 2021-03-28 | DI.RAD.S_ITS ---
PROCEDURE: XR KNEE LT 1TO2V INDICATIONS: CLOSED FRACTURE OF LEFT TIBIAL PLATEAU, INITIAL ENCOUNTER TECHNIQUE: 2 views of the knee were acquired. COMPARISON: [facility], CT, CT LE LT WO CON, 03/15/2021, 1:47Study. . [facility], CR, XR KNEE 1 OR 2 VIEWS LEFT, 03/20/2021, 13:17. [facility], CR, XR KNEE LT 3V, 03/14/2021, 23:42. FINDINGS: Bones: Patient's known minimally displaced fracture involving central to lateral portion of proximal tibia/tibial plateau is seen better evaluated on previous CT study. No new fracture or dislocation. No suspicious bony lesions. Soft tissues: Small to moderate suprapatellar joint effusion is seen. No suspicious soft tissue calcifications. IMPRESSION: Nondisplaced or minimally displaced proximal tibial fracture unchanged from prior studies. Small to moderate joint effusion. No new fracture or dislocation. Moderate tricompartmental osteoarthritis. Dictated by: Remberto Velazquez M.D. on 03/28/2021 at 16:06 Approved by: Remberto Velazquez M.D. on 03/28/2021 at 16:08
== END ==
PROVIDERS: PCP Family Medicine; Referring Provider Orthopaedic Surgery; Visit Provider Orthopaedic Surgery
DX: S82.142A Displaced bicondylar fracture of left tibia, initial encounter for closed fracture (principal); M17.12 Unilateral primary osteoarthritis, left knee; M25.462 Effusion, left knee; X58.XXXA Exposure to other specified factors, initial encounter
CPT/HCPCS: 73560

== ENCOUNTER → 2021-04-24 15:03 | Outpatient (CLI) | payer MEDICARE, SELFPAY ==
--- NOTE | 2021-04-24 | DI.RAD.S_ITS ---
PROCEDURE: XR KNEE LT 1TO2V INDICATIONS: CLOSED FRACTURE TECHNIQUE: 3 views of the knee were acquired. COMPARISON: [facility], , XR KNEE LT 1TO2V, 03/28/2021, 14:25. FINDINGS: Bones: There is a healing fracture involving proximal tibial shaft with fracture line extending to tibial spine with increased sclerosis at the site of fracture. No new fracture or dislocation is seen. No suspicious bony lesions. Soft tissues: No joint effusion. No suspicious soft tissue calcifications. IMPRESSION: Healing nondisplaced proximal tibial fracture with stable and anatomic left knee alignment. No new fracture or dislocation. Dictated by: Remberto Velazquez M.D. on 04/24/2021 at 15:38 Approved by: Remberto Velazquez M.D. on 04/24/2021 at 15:39
== END ==
PROVIDERS: PCP Family Medicine; Referring Provider Orthopaedic Surgery Orthopaedic Trauma; Visit Provider Orthopaedic Surgery Orthopaedic Trauma
DX: S82.142D Displaced bicondylar fracture of left tibia, subsequent encounter for closed fracture with routine healing (principal); X58.XXXD Exposure to other specified factors, subsequent encounter
CPT/HCPCS: 73560

== ENCOUNTER → 2021-06-14 13:55 | Outpatient (CLI) | payer MEDICARE, SELFPAY ==
--- NOTE | 2021-06-14 | DI.RAD.S_ITS ---
PROCEDURE: XR KNEE LT 1TO2V INDICATIONS: Displaced bicondylar fracture of left tibia, subsequent enco TECHNIQUE: 2 views of the knee were acquired. COMPARISON: [facility], CR, XR KNEE LT 1TO2V, 04/24/2021, 15:01. FINDINGS: Bones: Interval healing at proximal tibial shaft fracture site with sclerosis. No new fracture or dislocation. [id number] tricompartmental osteoarthritis is seen more prominent in medial femoral tibial compartment. No suspicious bony lesions. Soft tissues: No joint effusion. No suspicious soft tissue calcifications. IMPRESSION: Interval healing at proximal tibial shaft fracture site. Stable anatomic left knee alignment. [id number] tricompartmental osteoarthritis more prominent in medial femoral tibial compartment. No significant joint effusion. Dictated by: Remberto Velazquez M.D. on 06/14/2021 at 15:33 Approved by: Remberto Velazquez M.D. on 06/14/2021 at 15:33
== END ==
PROVIDERS: PCP Family Medicine; Referring Provider Nurse Practitioner; Visit Provider Nurse Practitioner
DX: S82.142D Displaced bicondylar fracture of left tibia, subsequent encounter for closed fracture with routine healing (principal); M17.12 Unilateral primary osteoarthritis, left knee
CPT/HCPCS: 73560

== ENCOUNTER → 2021-07-11 14:02 | Outpatient (CLI) | payer MEDICARE, SELFPAY ==
[2021-07-11 15:16] LABS: Hematocrit 42.5 % (36-46); Hemoglobin 14.3 g/dL (12.0-16.0)
[2021-07-11 16:16] LABS: BUN Creatinine Ratio 9.3 (6-22); Blood Urea Nitrogen 12 mg/dL (7-17); Calcium 9.4 mg/dL (8.4-10.2); Carbon Dioxide 21 mmol/L (22-32); Chloride 109 mmol/L (98-107); Glucose 104 mg/dL (80-110); HEMOLYSIS < 15 (0-50); Sodium 140 mmol/L (137-145)
[2021-07-11 17:03] LABS: Protein (Total) Urine Random < 5 mg/dL (0-12); Protein Creatinine Ratio Urine 0.05 GRAM/24H
[2021-07-12 08:12] LABS: Parathyroid Hormone Int 66 pg/mL (15-65)
== END ==
PROVIDERS: PCP Family Medicine; Referring Provider Student in an Organized Health Care Education/Training Program; Visit Provider Student in an Organized Health Care Education/Training Program
DX: N05.9 Unspecified nephritic syndrome with unspecified morphologic changes (principal); D64.9 Anemia, unspecified; N25.81 Secondary hyperparathyroidism of renal origin; R80.9 Proteinuria, unspecified
CPT/HCPCS: 36415; 80048; 82570; 83970; 84156; 85014; 85018

== ENCOUNTER → 2021-08-29 13:21 | Outpatient (CLI) | payer MEDICARE, SELFPAY ==
--- NOTE | 2021-08-29 | DI.RAD.S_ITS ---
PROCEDURE: XR KNEE LT 1TO2V INDICATIONS: Displaced bicondylar fracture of left tibia, subsequent enco TECHNIQUE: 2 views of the knee were acquired. COMPARISON: [facility], , XR KNEE LT 1TO2V, 06/14/2021, 13:50. FINDINGS: Bones: Significant interval progress in healing of a proximal tibial shaft fracture, almost completely healed. No new fractures or dislocations. Mild degenerative change at the knee. Soft tissues: No joint effusion. No suspicious soft tissue calcifications. IMPRESSION: Near complete healing of a proximal tibial shaft fracture. Dictated by: Thompson Benítez M.D. on 08/29/2021 at 15:14 Approved by: Thompson Benítez M.D. on 08/29/2021 at 15:15
== END ==
PROVIDERS: PCP Family Medicine; Referring Provider Nurse Practitioner; Visit Provider Nurse Practitioner
DX: S82.142D Displaced bicondylar fracture of left tibia, subsequent encounter for closed fracture with routine healing (principal); X58.XXXD Exposure to other specified factors, subsequent encounter
CPT/HCPCS: 73560

== ENCOUNTER → 2021-09-19 14:25 | Outpatient (CLI) | payer MEDICARE, SELFPAY ==
[2021-09-19 15:12] LABS: Add Manual Diff / Slide Review NO; Basophils Absolute Auto 0 /uL (0-100); Basophils Percent Auto 0.4 % (0-2); Eosinophils Absolute Auto 200 /uL (0-450); Hematocrit 44.2 % (36-46); Hemoglobin 14.6 g/dL (12.0-16.0); Lymphocytes Absolute Auto 500 /uL (1100-4500); Lymphocytes Percent Auto 6.6 % (25-40); Mean Corpuscular Hemoglobin 30.8 PG (26-34); Mean Corpuscular Volume 93.2 fL (80-100); Monocytes Absolute Auto 200 /uL (0-900); Monocytes Percent Auto 2.8 % (3-14); Neutrophils Absolute Auto 6800 /uL (1500-7000); Neutrophils Percent Auto 88.2 % (50-75); Platelet Count 182 X10^3/uL (150-400); Red Blood Cell Count 4.74 X10^6/uL (4.0-5.2); White Blood Cell Count 7.8 X10^3/uL (4.5-11.0)
[2021-09-19 15:59] LABS: Alanine Aminotransferase 14 IU/L (<35); Albumin 4.8 g/dL (3.5-5.0); Aspartate Aminotransferase 23 IU/L (14-36); BUN Creatinine Ratio 20.1 (6-22); Blood Urea Nitrogen 32 mg/dL (7-17); Calcium 9.3 mg/dL (8.4-10.2); Chloride 105 mmol/L (98-107); Estimated Glomerular Filt Rate 35 mL/min (>60); HDL Cholesterol 63 mg/dL (40-60); HEMOLYSIS < 15 (0-50); Potassium 4.2 mmol/L (3.4-5.1); Sodium 141 mmol/L (137-145)
[2021-09-19 16:07] LABS: Albumin Globulin Ratio 1.6 (1.0-2.8); Alkaline Phosphatase 96 U/L (38-126); Bilirubin Total 0.6 mg/dL (0.2-1.3); Carbon Dioxide 23 mmol/L (22-32); Cholesterol 165 mg/dL (140-199); Glucose 103 mg/dL (80-110); LDL Cholesterol Calculated 80 mg/dL (<100); Total Protein 7.8 g/dL (6.3-8.2); Triglycerides 109 mg/dL (35-150)
[2021-09-19 16:22] LABS: TSH w/ Reflex to FT4 2.29 uIU/mL (0.47-4.68)
== END ==
PROVIDERS: PCP Family Medicine; Referring Provider Family Medicine; Visit Provider Family Medicine
DX: I10 Essential (primary) hypertension (principal); E78.2 Mixed hyperlipidemia; N18.9 Chronic kidney disease, unspecified; S82.142D Displaced bicondylar fracture of left tibia, subsequent encounter for closed fracture with routine healing
CPT/HCPCS: 36415; 80053; 80061; 84443; 85025

== ENCOUNTER → 2021-11-14 15:27 | Outpatient (CLI) | payer MEDICARE, SELFPAY ==
[2021-11-14 16:44] LABS: Hematocrit 43.1 % (36-46); Hemoglobin 14.6 g/dL (12.0-16.0)
[2021-11-14 19:18] LABS: Creatinine Urine Random 154.2 mg/dL
[2021-11-14 19:33] LABS: Protein (Total) Urine Random < 5 mg/dL (0-12); Protein Creatinine Ratio Urine 0.03 GRAM/24H
[2021-11-14 21:02] LABS: BUN Creatinine Ratio 12.1 (6-22); Blood Urea Nitrogen 17 mg/dL (7-17); Calcium 9.7 mg/dL (8.4-10.2); Carbon Dioxide 24 mmol/L (22-32); Chloride 109 mmol/L (98-107); Estimated Glomerular Filt Rate 41 mL/min (>60); Glucose 95 mg/dL (80-110); HEMOLYSIS < 15 (0-50); Potassium 4.1 mmol/L (3.4-5.1); Sodium 143 mmol/L (137-145)
[2021-11-15 07:08] LABS: Parathyroid Hormone Int 69 pg/mL (15-65)
== END ==
PROVIDERS: PCP Family Medicine; Referring Provider Student in an Organized Health Care Education/Training Program; Visit Provider Student in an Organized Health Care Education/Training Program
DX: N05.9 Unspecified nephritic syndrome with unspecified morphologic changes (principal); D64.9 Anemia, unspecified; N25.81 Secondary hyperparathyroidism of renal origin; R80.9 Proteinuria, unspecified
CPT/HCPCS: 36415; 80048; 82570; 83970; 84156; 85014; 85018

== ENCOUNTER → 2022-04-24 13:49 | Outpatient (CLI) | payer MEDICARE, SELFPAY ==
[2022-04-24 14:32] LABS: Hematocrit 41.3 % (36-46); Hemoglobin 13.8 g/dL (12.0-16.0)
[2022-04-24 15:15] LABS: BUN Creatinine Ratio 12.7 (6-22); Blood Urea Nitrogen 16 mg/dL (7-17); Carbon Dioxide 20 mmol/L (22-32); Chloride 106 mmol/L (98-107); Estimated Glomerular Filt Rate 46 mL/min (>60); Glucose 86 mg/dL (80-110); Potassium 4.4 mmol/L (3.4-5.1); Sodium 140 mmol/L (137-145)
[2022-04-24 15:18] LABS: HEMOLYSIS 56 (0-50)
[2022-04-24 15:54] LABS: Creatinine Urine Random 94.5 mg/dL
[2022-04-24 16:21] LABS: Protein (Total) Urine Random < 5 mg/dL (0-12); Protein Creatinine Ratio Urine < 0.05 GRAM/24H
[2022-04-25 11:08] LABS: Parathyroid Hormone Int 86 pg/mL (15-65)
== END ==
PROVIDERS: PCP Family Medicine; Referring Provider Student in an Organized Health Care Education/Training Program; Visit Provider Student in an Organized Health Care Education/Training Program
DX: N05.9 Unspecified nephritic syndrome with unspecified morphologic changes (principal); D64.9 Anemia, unspecified; N25.81 Secondary hyperparathyroidism of renal origin; R80.9 Proteinuria, unspecified
CPT/HCPCS: 36415; 80048; 82570; 83970; 84156; 85014; 85018

== ENCOUNTER → 2022-10-09 16:20 | Outpatient (CLI) | payer MEDICARE, SELFPAY ==
[2022-10-09 16:49] LABS: Hematocrit 40.6 % (36-46); Hemoglobin 13.5 g/dL (12.0-16.0)
[2022-10-09 17:11] LABS: BUN Creatinine Ratio 15.4 (6-22); Blood Urea Nitrogen 24 mg/dL (7-17); Calcium 9.2 mg/dL (8.4-10.2); Carbon Dioxide 19 mmol/L (22-32); Chloride 110 mmol/L (98-107); Estimated Glomerular Filt Rate 36 mL/min (>60); Glucose 100 mg/dL (80-110); HEMOLYSIS < 15 (0-50); Potassium 4.6 mmol/L (3.4-5.1); Sodium 141 mmol/L (137-145)
[2022-10-09 17:30] LABS: Creatinine Urine Random 97.4 mg/dL; Protein (Total) Urine Random < 5 mg/dL (0-12); Protein Creatinine Ratio Urine 0.05 GRAM/24H
[2022-10-10 08:25] LABS: Parathyroid Hormone Int 95 pg/mL (15-65)
== END ==
PROVIDERS: PCP Family Medicine; Referring Provider Student in an Organized Health Care Education/Training Program; Visit Provider Student in an Organized Health Care Education/Training Program
DX: N05.9 Unspecified nephritic syndrome with unspecified morphologic changes (principal); D64.9 Anemia, unspecified; N25.81 Secondary hyperparathyroidism of renal origin; R80.9 Proteinuria, unspecified
CPT/HCPCS: 36415; 80048; 82570; 83970; 84156; 85014; 85018

== ENCOUNTER → 2022-12-03 11:32 | Outpatient (CLI) | payer MEDICARE, SELFPAY ==
[2022-12-03 13:04] LABS: BUN Creatinine Ratio 18.8 (6-22); Blood Urea Nitrogen 26 mg/dL (7-17); Calcium 9.1 mg/dL (8.4-10.2); Carbon Dioxide 19 mmol/L (22-32); Chloride 112 mmol/L (98-107); Estimated Glomerular Filt Rate 41 mL/min (>60); Glucose 103 mg/dL (80-110); HEMOLYSIS < 15 (0-50); Potassium 3.8 mmol/L (3.4-5.1); Sodium 143 mmol/L (137-145)
[2022-12-05 09:21] LABS: Parathyroid Hormone Int 90 pg/mL (15-65)
== END ==
PROVIDERS: PCP Family Medicine; Referring Provider Student in an Organized Health Care Education/Training Program; Visit Provider Student in an Organized Health Care Education/Training Program
DX: N05.9 Unspecified nephritic syndrome with unspecified morphologic changes (principal); N25.81 Secondary hyperparathyroidism of renal origin
CPT/HCPCS: 36415; 80048; 83970

== ENCOUNTER → 2023-05-25 14:50 | Outpatient (CLI) | payer MEDICARE, SELFPAY ==
[2023-05-25 15:38] LABS: Hematocrit 40.7 % (36-46); Hemoglobin 13.7 g/dL (12.0-16.0)
[2023-05-25 16:32] LABS: BUN Creatinine Ratio 12.2 (6-22); Blood Urea Nitrogen 18 mg/dL (7-17); Calcium 9.2 mg/dL (8.4-10.2); Carbon Dioxide 20 mmol/L (22-32); Chloride 109 mmol/L (98-107); Estimated Glomerular Filt Rate 38 mL/min (>60); Glucose 87 mg/dL (80-110); HEMOLYSIS < 15 (0-50); Potassium 4.4 mmol/L (3.4-5.1); Sodium 141 mmol/L (137-145)
[2023-05-25 18:43] LABS: Creatinine Urine Random 94.6 mg/dL
[2023-05-25 18:46] LABS: Protein (Total) Urine Random < 5 mg/dL (0-12); Protein Creatinine Ratio Urine 0.05 GRAM/24H
[2023-05-28 09:15] LABS: Parathyroid Hormone Int 75 pg/mL (15-65)
== END ==
LOC: LAB 14:54
PROVIDERS: PCP Family Medicine; Referring Provider Student in an Organized Health Care Education/Training Program; Visit Provider Student in an Organized Health Care Education/Training Program
DX: N05.9 Unspecified nephritic syndrome with unspecified morphologic changes (principal); D70.9 Neutropenia, unspecified; D63.1 Anemia in chronic kidney disease; N25.81 Secondary hyperparathyroidism of renal origin; R80.9 Proteinuria, unspecified
CPT/HCPCS: 36415; 80048; 82570; 83970; 84156; 85014; 85018

== ENCOUNTER → 2023-10-30 16:33 | Outpatient (CLI) | payer MEDICARE, SELFPAY ==
[2023-10-30 17:40] LABS: Hematocrit 42.4 % (36-46); Hemoglobin 14.2 g/dL (12.0-16.0)
[2023-10-30 18:41] LABS: BUN Creatinine Ratio 14.5 (6-22); Blood Urea Nitrogen 23 mg/dL (7-17); Calcium 9.2 mg/dL (8.4-10.2); Carbon Dioxide 24 mmol/L (22-32); Chloride 108 mmol/L (98-107); Estimated Glomerular Filt Rate 35 mL/min (>60); Glucose 85 mg/dL (80-110); HEMOLYSIS < 15 (0-50); Sodium 141 mmol/L (137-145)
[2023-10-31 10:54] LABS: Creatinine Urine Random 184.21 mg/dL
[2023-10-31 10:55] LABS: Protein (Total) Urine Random < 5 mg/dL (0-12); Protein Creatinine Ratio Urine 0.02 GRAM/24H
== END ==
PROVIDERS: PCP Family Medicine; Referring Provider Student in an Organized Health Care Education/Training Program; Visit Provider Student in an Organized Health Care Education/Training Program
DX: N05.9 Unspecified nephritic syndrome with unspecified morphologic changes (principal); D70.9 Neutropenia, unspecified; D63.1 Anemia in chronic kidney disease; N25.81 Secondary hyperparathyroidism of renal origin; R80.9 Proteinuria, unspecified
CPT/HCPCS: 36415; 80048; 82570; 83970; 84156; 85014; 85018

== ENCOUNTER → 2023-12-15 16:18 | Outpatient (CLI) | payer MEDICARE, SELFPAY ==
[2023-12-15 17:12] LABS: Add Manual Diff / Slide Review NO; Basophils Absolute Auto 0 /uL (0-100); Basophils Percent Auto 0.3 % (0-2); Eosinophils Absolute Auto 200 /uL (0-450); Eosinophils Percent Auto 4.4 % (2-4); Hematocrit 42.2 % (36-46); Hemoglobin 14.1 g/dL (12.0-16.0); Lymphocytes Absolute Auto 1100 /uL (1100-4500); Mean Corpuscular HGB Conc 33.5 % (30-36); Mean Corpuscular Hemoglobin 31.5 PG (26-34); Mean Corpuscular Volume 94.1 fL (80-100); Monocytes Absolute Auto 600 /uL (0-900); Monocytes Percent Auto 10.3 % (3-14); Neutrophils Absolute Auto 3700 /uL (1500-7000); Platelet Count 200 X10^3/uL (150-400); Red Blood Cell Count 4.49 X10^6/uL (4.0-5.2); Red Cell Distribution Width 14.3 % (11.6-14.8); White Blood Cell Count 5.7 X10^3/uL (4.5-11.0)
[2023-12-15 17:33] LABS: Alanine Aminotransferase 13 IU/L (<35); Albumin 4.3 g/dL (3.5-5.0); Albumin Globulin Ratio 1.5 (1.0-2.8); Alkaline Phosphatase 81 U/L (38-126); Aspartate Aminotransferase 24 IU/L (14-36); BUN Creatinine Ratio 13.3 (6-22); Bilirubin Total 0.5 mg/dL (0.2-1.3); Blood Urea Nitrogen 17 mg/dL (7-17); Carbon Dioxide 21 mmol/L (22-32); Chloride 110 mmol/L (98-107); Cholesterol 155 mg/dL (140-199); Estimated Glomerular Filt Rate 45 mL/min (>60); Globulin 2.9 g/dL (1.7-4.1); Glucose 91 mg/dL (80-110); HDL Cholesterol 57 mg/dL (40-60); HEMOLYSIS < 15 (0-50); LDL Cholesterol Calculated 84 mg/dL (<100); Potassium 4.1 mmol/L (3.4-5.1); Sodium 140 mmol/L (137-145); Total Protein 7.2 g/dL (6.3-8.2); Triglycerides 68 mg/dL (35-150)
[2023-12-15 18:02] LABS: TSH w/ Reflex to FT4 2.25 uIU/mL (0.47-4.68)
== END ==
PROVIDERS: PCP Family Medicine; Referring Provider Family Medicine; Visit Provider Family Medicine
DX: E78.2 Mixed hyperlipidemia (principal); I10 Essential (primary) hypertension
CPT/HCPCS: 36415; 80053; 80061; 84443; 85025

== ENCOUNTER → 2024-06-06 16:29 | Outpatient (CLI) | payer MEDICARE, SELFPAY ==
[2024-06-06 17:18] LABS: Hemoglobin 14.5 g/dL (12.0-16.0)
[2024-06-06 17:46] LABS: BUN Creatinine Ratio 17.4 (6-22); Blood Urea Nitrogen 25 mg/dL (7-17); Calcium 9.8 mg/dL (8.4-10.2); Carbon Dioxide 19 mmol/L (22-32); Chloride 111 mmol/L (98-107); Estimated Glomerular Filt Rate 39 mL/min (>60); Glucose 112 mg/dL (80-110); HEMOLYSIS < 15 (0-50); Potassium 4.2 mmol/L (3.4-5.1); Sodium 141 mmol/L (137-145)
[2024-06-06 18:49] LABS: Creatinine Urine Random 322.01 mg/dL; Protein (Total) Urine Random 15 mg/dL (0-12); Protein Creatinine Ratio Urine 0.04 GRAM/24H
[2024-06-08 06:36] LABS: Parathyroid Hormone Int 51 pg/mL (15-65)
== END ==
PROVIDERS: PCP Family Medicine; Referring Provider Student in an Organized Health Care Education/Training Program; Visit Provider Student in an Organized Health Care Education/Training Program
DX: N05.9 Unspecified nephritic syndrome with unspecified morphologic changes (principal); D70.9 Neutropenia, unspecified; D63.1 Anemia in chronic kidney disease; R80.9 Proteinuria, unspecified; N25.81 Secondary hyperparathyroidism of renal origin
CPT/HCPCS: 36415; 80048; 82570; 83970; 84156; 85014; 85018

== ENCOUNTER → 2025-01-16 14:48 | Outpatient (CLI) | payer MEDICARE, SELFPAY ==
[2025-01-16 15:35] LABS: Hematocrit 44.4 % (36-46); Hemoglobin 14.8 g/dL (12.0-16.0)
[2025-01-16 15:44] LABS: Blood Urea Nitrogen 21 mg/dL (7-17); Calcium 9.7 mg/dL (8.4-10.2); Carbon Dioxide 26 mmol/L (22-32); Chloride 108 mmol/L (98-107); Estimated Glomerular Filt Rate 48 mL/min (>60); Glucose 103 mg/dL (70-99); HEMOLYSIS < 15 (0-50); Potassium 4.2 mmol/L (3.4-5.1); Sodium 141 mmol/L (137-145)
== END ==
PROVIDERS: PCP Family Medicine; Referring Provider Student in an Organized Health Care Education/Training Program; Visit Provider Student in an Organized Health Care Education/Training Program
DX: D70.9 Neutropenia, unspecified (principal); N05.9 Unspecified nephritic syndrome with unspecified morphologic changes; N25.81 Secondary hyperparathyroidism of renal origin; D63.1 Anemia in chronic kidney disease
CPT/HCPCS: 36415; 80048; 83970; 85014; 85018